=== PATIENT | male | born 1955 | race Caucasian/White ===

== ENCOUNTER → 2021-03-28 | Day surgery (SDC) | payer OTHER ==
[~2021-03-28] MED LIST: ACCUPRIL40 MG PO; ALDACTONE50 MG PO; AMLODIPINE BESY10 MG PO; ANTIVERT12.5 MG PO; ATIVAN2 MG PO; BIOFREEZE89 ML TOP; BUPROPION XL300 MG PO; CENTRUM ADULTS1 EACH PO; CLONIDINE 0.3M0.3 MG PO; FLEXERIL10 MG PO; FLOMAX0.4 MG PO; FLUVOXAMINE MA100 MG PO; GLUCOTROL10 MG PO; HUMULIN R U-500; HYDRALAZINE 50M50 MG PO; LABETALOL HCL200 MG PO; LIPITOR40 MG PO; MINIPRESS5 MG PO; MUSCLE RELAXER; MYSOLINE50 MG PO; NOVOLOG VI100 UNIT/1 SC; OXYBUTYNIN CHLOR5 M1 PO; PEPCID AC20 MG PO; PERCOCET 10/321 EACH PO; PROTONIX 40MG T40 MG PO; VIT D PO; VITAMIN D310 MC1 PO; ZETIA10 MG PO; ZOCOR20 MG PO; [UNRECOGNIZED DRUG - REMARK] TOP
[2021-03-28 12:11] LABS: BUN/CREAT RATIO (CALC) 10.5 RATIO; CREATININE 1.14 mg/dL (0.67-1.17); POTASSIUM 4.2 mmol/L (3.5-5.1)
[2021-03-28 15:54] LABS: ALBUMIN 4.1 g/dL (3.4-5.0); BILIRUBIN - TOTAL 0.5 mg/dL (0.2-1.0); GLOBULIN (CALCULATION) 2.9 g/dL
== END | disposition home or self-care (01) ==
LOC: FAS 09:19
PROVIDERS: Anesthesiology; Surgery
DX: K31.7 Polyp of stomach and duodenum (principal); K21.9 Gastro-esophageal reflux disease without esophagitis; D17.5 Benign lipomatous neoplasm of intra-abdominal organs; D64.9 Anemia, unspecified; E11.9 Type 2 diabetes mellitus without complications; M19.90 Unspecified osteoarthritis, unspecified site; F32.9 Major depressive disorder, single episode, unspecified; K57.32 Diverticulitis of large intestine without perforation or abscess without bleeding; I25.2 Old myocardial infarction; I10 Essential (primary) hypertension; G43.909 Migraine, unspecified, not intractable, without status migrainosus; G47.30 Sleep apnea, unspecified; Z20.822 Contact with and (suspected) exposure to COVID-19; Z86.010 Personal history of colon polyps; Z79.899 Other long term (current) drug therapy; Z87.11 Personal history of peptic ulcer disease; Z87.19 Personal history of other diseases of the digestive system; Z90.49 Acquired absence of other specified parts of digestive tract; Z98.890 Other specified postprocedural states; Z99.81 Dependence on supplemental oxygen
CPT/HCPCS: 36415; 80048; 82040; 82150; 82247; 83690; 84075; 84155; 84450; 84460; 93005; J1885; J2704; J7120